=== PATIENT | male | born 1980 | race African-American/Black ===

== ENCOUNTER 2019-03-22 14:42 | Emergency (ER) | payer OTHER ==
[2019-03-22] MEDS ORDERED: methylPREDNISolone SOD SUCC 125 MG/2 ML VIAL IM ONE (14:57)
[2019-03-22] MEDS ORDERED: FAMOTIDINE 20 MG TABLET PO ONE (14:57)
[2019-03-22] MEDS ORDERED: diphenhydrAMINE HCL 25 MG TABLET PO ONE (14:57)
--- NOTE | 2019-03-22 15:00 | ED Physician Documentation ---
Eye Problem - HISTORIAN Historian: patient - HPI Stated Complaint: bee sting to right eye Chief Complaint: Eye Problems Additional Information: Patient presents to ED after being stung by a bee on the right eyelid. He denies shortness of breath or difficulty swallowing. Onset: minutes (15) Associated symptoms: pain, itching. denies: sensitivity to light Location: right eye Severity: severe Apparent Injury: yes Where: neighbors Further Comments: no - ROS CONST: no problems MS/SKIN/LYMPH: denies: weakness CVS/RESP: denies: chest pain, shortness of breath, cough EYES/ENT: problems with vision (right eye swollen closed) GI/: denies: nausea, vomiting - PAST HX Past History: none Allergies/Adverse Reactions: Allergies Allergy/AdvReac Type Severity Reaction Status Date / Time bee s Allergy Localized Uncoded 03/22/19 15:06 Swelling Home Medications: Ambulatory Orders Medication Instructions Recorded amLODIPine BESYLATE [Norvasc] 5 mg PO 0900 03/22/19 predniSONE [Deltasone] 20 mg PO DIRECTED #4 tablet 03/22/19 - SOCIAL HX Smoking History: cigarettes, greater than 1 pack/day Alcohol Use: none Drug Use: none - FAMILY HX Family History: none - REVIEWED ASSESSMENTS Nursing Assessment Reviewed: Yes Vitals Reviewed: Yes ED Results Lab/Radiology - Orders Orders: ED Orders Category Date Time Status Famotidine [Pepcid] Med 03/22/19 14:57 Once 40 mg PO NOW ONE diphenhydrAMINE HCL [Benadryl] Med 03/22/19 14:57 Once 50 mg PO NOW ONE methylPREDNISolone SOD SUCC [SOLU-Medrol] Med 03/22/19 14:57 Once 125 mg IM NOW ONE Eye Problem Physical Exam - Physical Exam General Appearance: no acute distress, alert Visual Acuity: see nursing assessment Eyelids: edema (R) Conjunctiva and Sclera: nml inspection Corneas: nml inspection EOM: intact Pupils: equal Head/ENT: nml inspection, pharynx nml Skin: nml color Neck/Back: nml inspection Respiratory: no resp distress, breath sounds normal CVS: reg rate & rhythm, heart sounds normal Abdomen: non-tender Neuro/Psych: oriented x3, mood/affect nml Discharge Clincal Impression: Bee sting reaction Qualifiers: Encounter type: initial encounter Injury intent: accidental or unintentional Qualified Code(s): T63.441A - Toxic effect of venom of bees, accidental (unintentional), initial encounter Prescriptions: predniSONE [Deltasone] 20 mg PO DIRECTED #4 tablet Referrals: Primary Doctor,No [Primary Care Provider] - 2 Days Additional Instructions: 1. Start taking Prednisone tomorrow 2. Benedryl 50mg every 4 hours as needed for swelling/itching. 3. Apply ice to affected area as needed for comfort 4. Follow up with PCP within 1 week 5. Return to ER for new or worsening symptoms Condition: Stable Disposition: 01 HOME, SELF-CARE Decision to Admit: NO Date of Decison to Admit: 03/22/19 Decision Time: 15:08
[2019-03-22 15:31] VITALS: BP 160/102
== END 2019-03-22 15:30 | disposition home or self-care (01) ==
LOC: ED 14:42
DX: T63.441A Toxic effect of venom of bees, accidental (unintentional), initial encounter (principal)
CPT/HCPCS: 96372; 99284; J2930; Q0163